=== PATIENT | male | born 1950 | race Caucasian/White ===

== ENCOUNTER → 2024-11-09 10:21 | Outpatient (BNVA) | payer MEDICARE, OTHER, SELFPAY | PROVIDERS: Referring Provider Internal Medicine Hematology & Oncology; Visit Provider Psychiatry & Neurology Neurology | DX: M54.12 Radiculopathy, cervical region (principal); M48.02 Spinal stenosis, cervical region; M75.42 Impingement syndrome of left shoulder; M75.41 Impingement syndrome of right shoulder; R29.898 Other symptoms and signs involving the musculoskeletal system; R29.2 Abnormal reflex; R20.0 Anesthesia of skin; M25.511 Pain in right shoulder; M25.512 Pain in left shoulder | CPT/HCPCS: 99203 ==

== ENCOUNTER 2024-11-24 06:52 | Outpatient (CLI) | payer MEDICARE, OTHER, SELFPAY ==
--- NOTE | 2024-11-24 07:15 | MR_ITS ---
WS: [id number] MRI CERVICAL SPINE with and without contrast HISTORY: M54.12 - Radiculopathy, cervical region COMPARISON: None available. Technique: Multiplanar, multisequence noncontrast imaging of the cervical spine. Postcontrast imaging MultiHance 17 mL. Straightening of the normal cervical lordosis. Very slight curvature. Disc spaces are mildly narrowed and desiccated. Osteophytic ridging of the vertebral bodies with disc bulges and protrusions at several levels. Most significant disc at C5-6 contacting the cord. Signal within the cervical cord is normal. Visualized posterior fossa is unremarkable. Craniocervical junction, C1 and C2 relationship, odontoid process and soft tissues are normal. C2-C3: Mild disc bulging and facet arthritis. No stenosis. C3-C4: Diffuse osteophytic ridging with disc bulging. Bilateral disc osteophyte complexes in the foramina. Bilateral facet arthritis. Mild central stenosis with severe bilateral facet arthritis and foraminal stenosis. C4-C5: Diffuse annular disc bulging, osteophytic ridging and moderate facet arthritis. Small bilateral foraminal osteophytes resulting in moderate foraminal stenosis. C5-C6: Marked osteophytic ridging, annular disc bulging. There is disc osteophyte contact on the ventral cord and slight displacement. Moderate bilateral facet arthritis. Severe central and bilateral foraminal stenosis. C6-C7: Diffuse annular disc bulging, osteophytic ridging and facet arthritis. Moderate to severe central and bilateral foraminal stenosis. C7-T1: Diffuse annular disc bulging, osteophytic ridging and facet arthritis. Disc contacts the ventral cord. Severe central with moderate bilateral foraminal stenosis. Paravertebral soft tissues are normal. No evidence for discitis or osteomyelitis. No enhancing masses. Mild acute synovitis on the LEFT at C3-4. MR/MR cervical spine wo/w [id number] IMPRESSION: 1. Central foraminal stenosis at multiple levels throughout the cervical spine . Due to combination of disc bulging with protrusions, osteophytes and facet ar thritis. 2. C3-4: Severe bilateral foraminal stenosis with mild central stenosis. 3. C4-5: Moderate bilateral foraminal stenosis. 4. C5-6: Severe central and bilateral foraminal stenosis due to disc osteophyt e disease and facet arthritis. There is contact on the ventral cord. 5. C6-7: Moderate to severe central and bilateral foraminal stenosis. 6. C7-T1: Severe central with moderate bilateral foraminal stenosis. Central d isc contacts the cord. 7. Mild acute synovitis on the LEFT at C3-4.
[2024-11-24] MEDS: gadobenate dimeglumine 20 mL vial 17 ML IV (07:47)
== END 2024-11-24 06:53 | disposition home or self-care (01) ==
LOC: RAD 06:58
PROVIDERS: Visit Provider Psychiatry & Neurology Neurology
DX: M54.12 Radiculopathy, cervical region (principal); M48.02 Spinal stenosis, cervical region; M47.892 Other spondylosis, cervical region; M25.78 Osteophyte, vertebrae; R93.7 Abnormal findings on diagnostic imaging of other parts of musculoskeletal system; M65.88 Other synovitis and tenosynovitis, other site; M50.31 Other cervical disc degeneration, high cervical region; M50.321 Other cervical disc degeneration at C4-C5 level; M50.322 Other cervical disc degeneration at C5-C6 level; M50.323 Other cervical disc degeneration at C6-C7 level; M50.33 Other cervical disc degeneration, cervicothoracic region; M48.03 Spinal stenosis, cervicothoracic region
CPT/HCPCS: 72156